=== PATIENT | female | born 1985 | race Caucasian/White ===

== ENCOUNTER 2017-01-31 18:25 | Emergency (ER) | payer OTHER ==
--- NOTE | 2017-01-31 20:42 | ED CLINICAL REPORT ---
Clinical Report - Physicians/Mid Levels [facility] [address] [place] [address] 01/31/2017 18:24 Patient: KATY SNOW Time Seen: 19:03; initial patient contact, initial documentation, patient care assumed. Arrived- By private vehicle. Historian- patient. HISTORY OF PRESENT ILLNESS Chief Complaint: SKIN RASH. This started about 5 days ago and is still present and worsening. It is described as itchy and painful. Not burning. It has been located on the face, trunk, right upper extremity, left upper extremity and neck. No cause has been identified. (pt admitted to picking at spots, just got out of [facility] and spots popped up after that, she thinks the rash is now in her blood and infecting her heart). Similar symptoms previously: None. Recent medical care: Not recently seen/assessed. REVIEW OF SYSTEMS The patient has had a subjective fever. All systems otherwise negative, except as recorded above. PAST HISTORY See nurses notes. PROBLEMS: Hives. Endocarditis. Pyelonephritis. Immunizations. LNMP - Last Normal Menstrual Period. Hypothyroidism. Chronic pain. --18:57 Socorro Brooks R.N. ADDITIONAL SURGERIES: Tonsillectomy. --18:57 Socorro Brooks R.N. Dental Surgery. --18:57 Socorro Brooks R.N. SOCIAL HISTORY Heavy tobacco smoker. Occasional alcohol use. History of heavy IV drug use: heroin, methamphetamines, marijuana. Recently used drugs days ago. No recent travel. Is a local resident. FAMILY HISTORY Negative. ADDITIONAL NOTES The nursing notes have been reviewed with agreement regarding the chief complaint, HPI, ROS, PMH and patient medications and allergies. PHYSICAL EXAM Vital Signs: 01/31/2017 18:53 BP: 122/79. HR: 115. RR: 20. O2 saturation: 97%. Temp: 98.4 F. Pain level now: 8/10. Have been reviewed as abnormal and appear to be correct. Blood pressure normal. Tachycardic. Respiratory rate normal. Temperature normal. Oxygen saturation normal. Appearance: Alert. Oriented X3. No acute distress. Anxious. (pt appears under the influence). Eyes: Pupils equal, round and reactive to light. Conjunctivae and eyelids normal. ENT: Ears normal. Nose abnormal. Pharynx normal. ( yellow crusty scab wound noted to inside L nare and outside of nose). Neck: Neck supple. Respiratory: No respiratory distress. Skin: Skin warm and dry. Normal skin color. No rash. Normal skin turgor. (numerous scabs and yellow crusts, on face, inside L nare, neck, upper back, arms, and pt picking at ones on face and in nose during exam). Extremities: Normal external inspection. Extremities nontender. Neuro: Oriented X 3. No motor deficit. No sensory deficit. LABS, X-RAYS, AND EKG Laboratory Tests: UA-Culture if indicated: (FAYE: 01/31/2017 19:00) ( [facility] [place] 01/31/2017 19:51) Final results Test Result Flag Units (Reference) URINE COLOR DARK YELLOW URINE APPEARANCE SL CLOUDY URINE GLUCOSE NEGATIVE (NEGATIVE) URINE BILIRUBIN ICTOTEST NEGATIVE (NEGATIVE) URINE KETONE NEGATIVE (NEGATIVE) URINE SPECIFIC GRAVITY 1.025 (1.010-1.030) URINE PH 6.5 (5.0-8.0) URINE PROTEIN TRACE (NEGATIVE) URINE UROBILINOGEN 1.0 EU/dL (0.2-1.0) URINE NITRITE NEGATIVE (NEGATIVE) URINE BLOOD 2+ (NEGATIVE) URINE LEUK ESTERASE NEGATIVE (NEGATIVE) URINE RBC 5-10 rbc/hpf (0-1) URINE WBC 1-3 wbc/hpf (0-1) URINE EPITHELIAL CELLS 5-10 EPI/hpf (0-5) URINE BACTERIA FEW (1+) (NONE SEEN) URINE COMMENT CULT NOT INDICATED 1+ MUCUS1+ CALCIUM OXALATE CRYSTALSURINE CULTURES ARE SET-UP BASED ON THE FOLLOWING CRITERIA:POSITIVE NITRITEPOSITIVE LEUKOCYTE ESTERASEGREATER THAN 10 WHITE BLOOD CELLSMODERATE (2+) OR GREATER BACTERIA Urine: (FAYE: 01/31/2017 19:00) ( [facility] [place] 01/31/2017 19:47) Final results Test Result Flag Units (Reference) URINE NEGATIVE CBC w Diff: (FAYE: 01/31/2017 19:30) ( MsgRcvd 01/31/2017 20:23) Final results Test Result Flag Units (Reference) WHITE BLOOD COUNT 8.4 K/uL (4.5-11.5) RED BLOOD COUNT 3.76 L M/uL (4.00-5.20) HEMOGLOBIN 12.2 gm/dL (12.0-16.0) HEMATOCRIT 34.6 L % (36.0-46.0) MEAN CELL VOLUME 92 fL (80-100) MEAN CORPUSCULAR HGB 33 pg (26-34) MEAN CORPUSCULAR HGB CONC 35 g/dL (31-37) RED CELL DISTRIBUTION WIDTH 12.7 % (11.6-14.8) PLATELET COUNT Test not performed K/uL (150-400) PLATELET CLUMPS. APPEAR TO BE ADEQUATE IN NUMBER PER SMEARREVIEW. NEUTROPHIL % 62.7 % (50-75) LYMPH % 22.3 L % (25-40) MONO % 11.9 % (3-14) EOSINOPHIL % 2.8 % (0-4) BASOPHIL % 0.3 % (0-2) Urine Drug Screen: (FAYE: 01/31/2017 19:00) ( MsgRcvd 01/31/2017 20:11) Final results Test Result Flag Units (Reference) AMPHETAMINE/METHAMPHETAMINE POSITIVE H (NEGATIVE) BARBITURATE NEGATIVE (NEGATIVE) BENZODIAZEPINE NEGATIVE (NEGATIVE) CANNABINOID NEGATIVE (NEGATIVE) COCAINE NEGATIVE (NEGATIVE) ECSTASY NEGATIVE (NEGATIVE) METHADONE NEGATIVE (NEGATIVE) OPIATE POSITIVE H (NEGATIVE) The urine drug screen is a qualitative screening test fordrug overdose and abuse. All screen results should beconsidered as presumptive.Drugs screened for are as follows:BenzodiazepinesCocaineAmphetamines/MetamphetaminesTHC (Tetrahydrocannabinol)OpiatesBarbituratesEcstasyMethadonePositive results are unconfirmed. For confirmation, notifythe lab for the specimen to be sent to the reference lab.All confirmations must be performed by a differentmethodology.The ingestion of natural herbal and plant productscontaining Ephedra/Ephedra metabolites can produce in urineone or more substances capable of cross reacting withamphetamine/methamphetamine immunoassays. These testsprovide a preliminary result only. A more specificalternative chemical method must be used to obtain aconfirmed analytical result. CMP: (FAYE: 01/31/2017 19:30) ( MsgRcvd 01/31/2017 20:01) Final results Test Result Flag Units (Reference) GLUCOSE 103 mg/dL (70-110) BUN 14 mg/dL (7-18) CREATININE 0.8 mg/dL (0.6-1.3) Estimated GFR >60 mL/min Estimated GFR- >60 mL/min Note: Persistent reduction over 3 months in eGFR<60 mL/min/1.73 m2 defines CKD. Patients with eGFR values>=60 mL/min/1.73 m2 may also have CKD if evidence ofpersistent proteinuria. Additional information may be foundat www.kidney.org. SODIUM 142 mmol/L (136-145) POTASSIUM 3.5 mmol/L (3.5-5.1) CHLORIDE 107 mmol/L (98-107) CARBON DIOXIDE 25 mmol/L (21-32) CALCIUM 9.6 mg/dL (8.5-10.1) TOTAL PROTEIN 6.9 g/dL (6.4-8.2) ALBUMIN 3.5 g/dL (3.3-5.0) BILIRUBIN, TOTAL 1.0 mg/dL (0.0-1.0) ALKALINE PHOSPHATASE 78 U/L (46-116) AST (SGOT) 41 H U/L (15-37) ALT (SGPT) 62 U/L (12-78) . PROGRESS AND PROCEDURES Patient counseled in person regarding the patient's stable condition, test results and diagnosis. 20:23. Differential Diagnosis: Other possible considerations: substance abuse, impetigo, mrsa, cellulitis, abscess, fungus. Above considerations are based on history, physical exam, reassessment and laboratory data. Differential diagnosis was discussed with patient. Disposition: Discharged home in good and unchanged condition (20:28). Condition: good and stable. CLINICAL IMPRESSION Bullous impetigo Chronic substance abuse- heroin, amphetamines with intoxication and anxiety. INSTRUCTIONS Warnings: GENERAL WARNINGS: Return or contact your physician immediately if your condition worsens or changes unexpectedly, if not improving as expected, or if other problems arise. Specifically return if problem worsens. Prescription Medications: Bactrim DS 800 mg / 160 mg: take 1 tablet orally every day for 10 days. No refill. Bactroban 2% ointment: apply small amount to affected area three times daily for 5 days. Dispense twenty-two (22) grams. No refills. Substitution is permissible. Follow-up: Follow up with your doctor in about three days as needed. Call for an appointment. Summary of care provided to patient. Understanding of the discharge instructions verbalized by patient. (Electronically signed by Rola Melvin A.R.N.P. 01/31/2017 21:15)
--- NOTE | 2017-01-31 20:42 | ED NURSING NOTES ---
Clinical Report - Nurses [facility] [address] [place] [address] 01/31/2017 18:24 Patient: KATY SNOW TRIAGE Triage time 18:54 Jan 31 2017. Acuity: LEVEL 3. Chief Complaint: SKIN RASH. Alert. No acute distress. SEPSIS SCREEN: Sepsis Screen. Negative (no infection suspected/documented). --19:02 Socorro Brooks R.N. 18:53 01/31/17. BP: 122/79. HR: 115. RR: 20. O2 saturation: 97%. Temp: 98.4 F. Pain level now: 05/01. --19:02 Socorro Brooks R.N. Weight: 74.8 kg stated. Height/Length: 69 inches Per Patient. BMI: 24.4. --18:58 Socorro Brooks R.N. Medications None. --18:57 Socorro Brooks R.N. Allergies None. --18:57 Socorro Brooks R.N. History Arrived by private vehicle. Historian: patient. Accompanied by family. Reported as generalized in location. Onset. (about 5 days). It is described as itchy and painful. ( [facility]. Pt states that all the sores have happened since then.). She has had fever and muscle aches. 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 PAST MEDICAL HX: Immunizations: status is unknown. Uses an intrauterine device. Denies current . SOCIAL HX: Current every day heavy tobacco smoker (cigarette)- less than 1 pack per day. Occasional alcohol use. History of drug use: heroin, methamphetamines, marijuana. Under influence in ED. (about 2 days ago). No infectious disease exposure. SELF HARM ASSESSMENT: A self harm assessment was performed. The patient answered "no" to the question "Do you have thoughts of harming or killing yourself?". FALL RISK ASSESSMENT: Fall risk assessment completed. No fall risk identified. NUTRITIONAL RISK ASSESSMENT: The nutritional risk assessment revealed no deficiencies. FUNCTIONAL ASSESSMENT: Functional assessment: no impairments noted. LEARNING NEEDS ASSESSMENT: The learning needs assessment revealed no barriers. ABUSE ASSESSMENT: Abuse assessment: The patient was asked "Do you feel safe in your home?". SKIN INTEGRITY ASSESSMENT: Skin integrity risk assessment completed. No skin integrity risk identified. --19:02 Socorro Brooks R.N. SOCIAL HX: ( clarification to earlier note - pt appears to be under the influence of a substance in ED but pt states she last used 2 days ago.). --19:38 Socorro Brooks R.N. PROBLEMS: Hives. Endocarditis. Pyelonephritis. Immunizations. LNMP - Last Normal Menstrual Period. Hypothyroidism. Chronic pain. --18:57 Socorro Brooks R.N. ADDITIONAL SURGERIES: Tonsillectomy. --18:57 Socorro Brooks R.N. Dental Surgery. --18:57 Socorro Brooks R.N. Interventions ID band on patient. To room. --19:02 Socorro Brooks R.N. PHYSICAL ASSESSMENT GENERAL / NEURO / PSYCH: Alert. Appears anxious. Oriented X 4. HEENT: Mucous membranes are pink. RESPIRATORY: Respirations not labored. CVS: Cardiac rhythm: (tachy). Capillary refill less than 2 seconds. GI / : ( c/o diarrhea (15x per day) and gas). Pain with urination. She has had frequency of urination. Urgency of urination. SKIN: Multiple skin lesions present- skin lesions all over body. Drainage. Increased warmth present. Erythema present. --19:05 Socorro Brooks R.N. NURSING PROGRESS NOTES Patient gowned. Head of bed elevated. Call light placed in reach. Side rails up x 1. Bed placed in lowest position. Brakes of bed on. --19:06 Socorro Brooks R.N. ( called lab to come and draw patient). --19:12 Socorro Brooks R.N. <<STRICKEN ENTRY-- The patient is calm and resting quietly. --19:22 Socorro Brooks R.N. --END STRIKE>> Charted On Wrong Patient --19:25 Socorro Brooks R.N. <<STRICKEN ENTRY-- 19:19 01/31/17. BP: 124/59. HR: 67. RR: 16. O2 saturation: 100%. --19:22 Socorro Brooks R.N. --END STRIKE>> Charted on wrong patient. --19:25 Socorro Brooks R.N. DISPOSITION / DISCHARGE Departure time: 20:51 Jan 31 2017. Condition at departure: unchanged. No learning barriers present. Discharge instructions provided and reviewed with the patient. Reviewed medication(s) side effects, precautions, dosing and course information. Prescription(s) given to the patient. Reviewed referral to a primary care physician for followup. Patient verbalized understanding. Written instructions provided in Thai. The patient was discharged home and accompanied by parent. She left the Emergency Department ambulatory and via private vehicle. Parent driving. FALL RISK ASSESSMENT: Fall risk assessment completed. No fall risk identified. --20:51 Socorro Brooks R.N. 20:50 01/31/17. BP: 121/77. HR: 113. RR: 20. O2 saturation: 98%. Pain level now: 03/31. --20:51 Socorro Brooks R.N. Locked/Released at 01/31/2017 22:44 by Socorro Brooks R.N.
--- NOTE | 2017-01-31 20:42 | ED ORDER SUMMARY ---
..... Patient: KATY SNOW OrderSheet [facility] VisitID: [id number] [address] [place] [address] 32y, F Registration Date/Time: 01/31/2017 ORDER SHEET Weight: 74.8 kg (stated) Allergies: None GENERAL ORDERS: CBC w Diff Urgent (19:01/31/2017 HBivens A.R.N.P.) (Ack 19:16 [facility] [place]) (19:32 KKnebel R.N.) CMP Urgent (19:01/31/2017 HBivens A.R.N.P.) (Ack 19:16 [facility] [place]) (19:32 KKnebel R.N.) Urine Urgent (19:01/31/2017 HBivens A.R.N.P.) (Ack 19:16 [facility] [place]) (19:32 KKnebel R.N.) Urine Drug Screen Urgent (19:01/31/2017 HBivens A.R.N.P.) (Ack 19:16 [facility] [place]) (19:32 KKnebel R.N.) UA-Culture if indicated Urgent (19:01/31/2017 HBivens A.R.N.P.) (Ack 19:16 [facility] [place]) (19:32 KKnebel R.N.) MEDICATION ORDERS: IV FLUIDS: ORDER SHEET NOTES: [Electronically signed by Rola Melvin A.R.N.P. (21:15 01/31/2017)] [Electronically signed by Socorro Brooks R.N. (22:44 01/31/2017)] [Electronically locked/signed by Socorro Brooks R.N. (22:44 01/31/2017)]
--- NOTE | 2017-01-31 20:42 | ED ORDER SUMMARY ---
..... Patient: KATY SNOW OrderSheet [facility] VisitID: [id number] [address] [place] [address] 32y, F Registration Date/Time: 01/31/2017 ORDER SHEET Weight: 74.8 kg (stated) Allergies: None GENERAL ORDERS: CBC w Diff Urgent (19:01/31/2017 HBivens A.R.N.P.) (Ack 19:16 [facility] [place]) (19:32 KKnebel R.N.) CMP Urgent (19:01/31/2017 HBivens A.R.N.P.) (Ack 19:16 [facility] [place]) (19:32 KKnebel R.N.) Urine Urgent (19:01/31/2017 HBivens A.R.N.P.) (Ack 19:16 [facility] [place]) (19:32 KKnebel R.N.) Urine Drug Screen Urgent (19:01/31/2017 HBivens A.R.N.P.) (Ack 19:16 [facility] [place]) (19:32 KKnebel R.N.) UA-Culture if indicated Urgent (19:01/31/2017 HBivens A.R.N.P.) (Ack 19:16 [facility] [place]) (19:32 KKnebel R.N.) MEDICATION ORDERS: IV FLUIDS: ORDER SHEET NOTES: [Electronically signed by Rola Melvin A.R.N.P. (21:15 01/31/2017)] [Electronically signed by Socorro Brooks R.N. (22:44 01/31/2017)] [Electronically locked/signed by Socorro Brooks R.N. (22:44 01/31/2017)]
--- NOTE | 2017-01-31 20:42 | ED NURSING NOTES ---
Clinical Report - Nurses [facility] [address] [place] [address] 01/31/2017 18:24 Patient: KATY SNOW TRIAGE Triage time 18:54 Jan 31 2017. Acuity: LEVEL 3. Chief Complaint: SKIN RASH. Alert. No acute distress. SEPSIS SCREEN: Sepsis Screen. Negative (no infection suspected/documented). --19:02 Socorro Brooks R.N. 18:53 01/31/17. BP: 122/79. HR: 115. RR: 20. O2 saturation: 97%. Temp: 98.4 F. Pain level now: 05/01. --19:02 Socorro Brooks R.N. Weight: 74.8 kg stated. Height/Length: 69 inches Per Patient. BMI: 24.4. --18:58 Socorro Brooks R.N. Medications None. --18:57 Socorro Brooks R.N. Allergies None. --18:57 Socorro Brooks R.N. History Arrived by private vehicle. Historian: patient. Accompanied by family. Reported as generalized in location. Onset. (about 5 days). It is described as itchy and painful. ( [facility]. Pt states that all the sores have happened since then.). She has had fever and muscle aches. 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 PAST MEDICAL HX: Immunizations: status is unknown. Uses an intrauterine device. Denies current . SOCIAL HX: Current every day heavy tobacco smoker (cigarette)- less than 1 pack per day. Occasional alcohol use. History of drug use: heroin, methamphetamines, marijuana. Under influence in ED. (about 2 days ago). No infectious disease exposure. SELF HARM ASSESSMENT: A self harm assessment was performed. The patient answered "no" to the question "Do you have thoughts of harming or killing yourself?". FALL RISK ASSESSMENT: Fall risk assessment completed. No fall risk identified. NUTRITIONAL RISK ASSESSMENT: The nutritional risk assessment revealed no deficiencies. FUNCTIONAL ASSESSMENT: Functional assessment: no impairments noted. LEARNING NEEDS ASSESSMENT: The learning needs assessment revealed no barriers. ABUSE ASSESSMENT: Abuse assessment: The patient was asked "Do you feel safe in your home?". SKIN INTEGRITY ASSESSMENT: Skin integrity risk assessment completed. No skin integrity risk identified. --19:02 Socorro Brooks R.N. SOCIAL HX: ( clarification to earlier note - pt appears to be under the influence of a substance in ED but pt states she last used 2 days ago.). --19:38 Socorro Brooks R.N. PROBLEMS: Hives. Endocarditis. Pyelonephritis. Immunizations. LNMP - Last Normal Menstrual Period. Hypothyroidism. Chronic pain. --18:57 Socorro Brooks R.N. ADDITIONAL SURGERIES: Tonsillectomy. --18:57 Socorro Brooks R.N. Dental Surgery. --18:57 Socorro Brooks R.N. Interventions ID band on patient. To room. --19:02 Socorro Brooks R.N. PHYSICAL ASSESSMENT GENERAL / NEURO / PSYCH: Alert. Appears anxious. Oriented X 4. HEENT: Mucous membranes are pink. RESPIRATORY: Respirations not labored. CVS: Cardiac rhythm: (tachy). Capillary refill less than 2 seconds. GI / : ( c/o diarrhea (15x per day) and gas). Pain with urination. She has had frequency of urination. Urgency of urination. SKIN: Multiple skin lesions present- skin lesions all over body. Drainage. Increased warmth present. Erythema present. --19:05 Socorro Brooks R.N. NURSING PROGRESS NOTES Patient gowned. Head of bed elevated. Call light placed in reach. Side rails up x 1. Bed placed in lowest position. Brakes of bed on. --19:06 Socorro Brooks R.N. ( called lab to come and draw patient). --19:12 Socorro Brooks R.N. <<STRICKEN ENTRY-- The patient is calm and resting quietly. --19:22 Socorro Brooks R.N. --END STRIKE>> Charted On Wrong Patient --19:25 Socorro Brooks R.N. <<STRICKEN ENTRY-- 19:19 01/31/17. BP: 124/59. HR: 67. RR: 16. O2 saturation: 100%. --19:22 Socorro Brooks R.N. --END STRIKE>> Charted on wrong patient. --19:25 Socorro Brooks R.N. DISPOSITION / DISCHARGE Departure time: 20:51 Jan 31 2017. Condition at departure: unchanged. No learning barriers present. Discharge instructions provided and reviewed with the patient. Reviewed medication(s) side effects, precautions, dosing and course information. Prescription(s) given to the patient. Reviewed referral to a primary care physician for followup. Patient verbalized understanding. Written instructions provided in Greek. The patient was discharged home and accompanied by parent. She left the Emergency Department ambulatory and via private vehicle. Parent driving. FALL RISK ASSESSMENT: Fall risk assessment completed. No fall risk identified. --20:51 Socorro Brooks R.N. 20:50 01/31/17. BP: 121/77. HR: 113. RR: 20. O2 saturation: 98%. Pain level now: 03/31. --20:51 Socorro Brooks R.N. Locked/Released at 01/31/2017 22:44 by Socorro Brooks R.N.
--- NOTE | 2017-01-31 22:44 | ED DISCHARGE INSTRUCTIONS ---
Patient: KATY SNOW General Instructions [facility] VisitID: [id number] [place] [address] 32y, F Registration Date/Time: 01/31/2017 Bullous impetigo Chronic substance abuse- heroin, amphetamines with intoxication and anxiety. INSTRUCTIONS Warnings: GENERAL WARNINGS: Return or contact your physician immediately if your condition worsens or changes unexpectedly, if not improving as expected, or if other problems arise. Specifically return if problem worsens. Prescription Medications: Bactrim DS 800 mg / 160 mg: take 1 tablet orally every day for 10 days. No refill. Bactroban 2% ointment: apply small amount to affected area three times daily for 5 days. Dispense twenty-two (22) grams. No refills. Substitution is permissible. Follow-up: Follow up with your doctor in about three days as needed. Call for an appointment. Summary of care provided to patient. Understanding of the discharge instructions verbalized by patient. ADDITIONAL INFORMATION Impetigo Impetigo is the name for a bacterial infection of the skin. It is common in children. It may start as an infected insect bite or scratch and spread rapidly to other areas of the body. It is contagious and can be given to other children by touching. The sores usually have a malhotra brown crust and grow gradually larger as they spread. Impetigo requires treatment with an antibiotic. Home care The following guidelines will help you care for your infection at home: Trim fingernails and cover sores with an adhesive bandage if necessary to prevent scratching. Picking at the sores may leave a scar. Wash hands (yours and your child's) often. This will avoid spreading the infection to other parts of the body and to other children. Do not let your child share washcloths, towels, pillows, sheets, or clothes with others. Wash these items in hot water before using again. The sores should be washed three times a day with soap and water. Use a washcloth to scrub the sores and remove the crust. Then apply an antibacterial cream as directed. If antibiotic pills or liquid was prescribed, be sure your child takes all the medicine until it is gone. Your child should stay out of school until completing two full days of antibiotic treatment. Use acetaminophen for fever, fussiness or discomfort, unless another medicine was prescribed. In infants over six months of age, you may use ibuprofen instead of acetaminophen. If your child has chronic liver or kidney disease or has ever had a stomach ulcer or GI bleeding, talk with your doctor before using these medicines. (Aspirin should never be used in anyone under 18 years of age who is ill with a fever. It may cause severe liver damage. Follow-up care Follow up with your doctor or this facility if the sores continue to spread after three days of treatment. It will take about 710 days to heal completely. When to seek medical care Get prompt medical attention if any of the following occur: Increasing number of sores or spreading areas of redness after two days of treatment with antibiotics Increasing swelling, or pain Fever of 100.4F (38C) oral or 101.4F (38.5C) rectal or higher, not better with fever medication Increased amounts of fluid or pus coming from the sores Unusual drowsiness, weakness, or change in behavior Loss of appetite or vomiting Cellulitis You have an infection of the skin known as cellulitis. This usually starts with a scrape, cut, insect bite, blister or other opening in the skin which becomes infected. This is a serious condition. It must be watched closely to be sure the infection is not spreading. With antibiotic treatment, the size of the red area will gradually shrink in size until the skin returns to normal. This will take 7-10 days. The red area should never increase in size once the antibiotic medicine has been started. Occasionally, an infection will be resistant to one antibiotic and another one will have to be used. Home Care: 1) Limit the use of the affected part, since excess movement can cause the infection to spread. 2) If the infection is on your leg, walk as little as possible during the first few days of the treatment. Keep your leg elevated while sitting. This will reduce swelling. 3) Take all of the antibiotic medicine exactly as directed until it is gone. Be careful not to miss any doses, especially during the first seven days. Follow Up with your doctor or this facility as directed. Check the infected area daily for the warning signs listed below. Get Prompt Medical Attention if any of the following occur: -- Spreading area of redness -- Increasing swelling or pain -- Appearance of pus or drainage -- Fever over 100.4 F (38.0 C) oral, or over 101.4 F (38.6 C) rectal, after two days on antibiotics Drug Abuse Use and abuse of such drugs as marijuana, amphetamines (speed, crank), cocaine, heroin or prescription pain medicines (Vicodin, codeine), sedatives and sleeping pills (Valium, Klonopin), PCP, mescaline and LSD may lead to addiction or dependence. Once this occurs, you are at greater risk for any of the following: Craving for the drug and unable to stop using the drug even though you think you want to stop (psychological dependence) Drug withdrawal symptoms if you stop taking the drug (physical dependence) Loss of your job or your family Arrest, conviction and halfway sentence for possession of an illegal substance or for driving under the influence of such a substance Accidental injuries to yourself or others while you are under the influence of the drug (in a car or at home). HIV infection (much greater risk if you use IV drugs) Other sexually transmitted diseases (herpes, chlamydia, gonorrhea and others) Severe and fatal infection of the heart valves (if you use IV drugs) Stroke, heart attack, hepatitis B or C, kidney failure from overdose Home Care: Admit you have a drug problem. Ask for help from your family and close friends. Seek professional help. This could be in the form of individual psychotherapy or counseling or an outpatient, inpatient, or residential drug treatment program. Join a self-help group for drug abuse. Avoid friends who abuse drugs themselves or tempt you to continue abusing drugs. Eat a balanced diet and begin a regular exercise program. Follow Up with your doctor or as advised by our staff. Contact one of the resources below for help. National [place] on Alcoholism and Drug Dependence www.ncadd.org 104-558-NOOO Narcotics Anonymous www.na.org 526-831-0403 National Alcohol and Substance Abuse Information Center (for referral to treatment programs) www.addictioncare[employer] 947-050-8299 Get Prompt Medical Attention if any of the following occur: Agitation, anxiety, unable to sleep Unintended weight loss (more than 10 to 15 pounds over 3 months) Seizure Chest pain Fever of 100.4F (38C) or higher, or as directed by your healthcare provider Excess drowsiness or inability to be awakened Shortness of breath Slow breathing under 8 breaths per minute Cough with colored sputum Redness, swelling or tenderness at an injection site Sulfamethoxazole, Trimethoprim Oral tablet What is this medicine? SULFAMETHOXAZOLE; TRIMETHOPRIM or SMX-TMP (suhl fuh meth OK kaykay zohl; trye METH oh prim) is a combination of a sulfonamide antibiotic and a second antibiotic, trimethoprim. It is used to treat or prevent certain kinds of bacterial infections. It will not work for colds, flu, or other viral infections. How should I use this medicine? Take this medicine by mouth with a full glass of water. Follow the directions on the prescription label. Take your medicine at regular intervals. Do not take it more often than directed. Do not skip doses or stop your medicine early. Talk to your sleeve tailor regarding the use of this medicine in children. Special care may be needed. This medicine has been used in children as young as 2 months of age. What side effects may I notice from receiving this medicine? Side effects that you should report to your doctor or health home care attendant as soon as possible: allergic reactions like skin rash or hives, swelling of the face, lips, or tongue breathing problems fever or chills, sore throat irregular heartbeat, chest pain joint or muscle pain pain or difficulty passing urine red pinpoint spots on skin redness, blistering, peeling or loosening of the skin, including inside the mouth unusual bleeding or bruising unusually weak or tired yellowing of the eyes or skin Side effects that usually do not require medical attention (report to your doctor or health home care attendant if they continue or are bothersome): diarrhea dizziness headache loss of appetite nausea, vomiting nervousness What may interact with this medicine? Do not take this medicine with any of the following medications: aminobenzoate potassium dofetilide metronidazole This medicine may also interact with the following medications: ARIANNA inhibitors like benazepril, enalapril, lisinopril, and ramipril cyclosporine digoxin diuretics indomethacin medicines for diabetes methenamine methotrexate phenytoin potassium supplements pyrimethamine sulfinpyrazone tricyclic antidepressants warfarin What if I miss a dose? If you miss a dose, take it as soon as you can. If it is almost time for your next dose, take only that dose. Do not take double or extra doses. Where should I keep my medicine? Keep out of the reach of children. Store at room temperature between 20 to 25 degrees C (68 to 77 degrees F). Protect from light. Throw away any unused medicine after the expiration date. What should I tell my health care provider before I take this medicine? They need to know if you have any of these conditions: anemia asthma being treated with anticonvulsants if you frequently drink alcohol containing drinks kidney disease liver disease low level of folic acid or [id number] dehydrogenase poor nutrition or malabsorption porphyria severe allergies thyroid disorder an unusual or allergic reaction to sulfamethoxazole, trimethoprim, sulfa drugs, other medicines, foods, dyes, or preservatives or trying to get breast-feeding What should I watch for while using this medicine? Tell your doctor or health home care attendant if your symptoms do not improve. Drink several glasses of water a day to reduce the risk of kidney problems. Do not treat diarrhea with over the counter products. Contact your doctor if you have diarrhea that lasts more than 2 days or if it is severe and watery. This medicine can make you more sensitive to the sun. Keep out of the sun. If you cannot avoid being in the sun, wear protective clothing and use a sunscreen. Do not use sun lamps or tanning beds/booths. Mupirocin Topical ointment What is this medicine? MUPIROCIN (myoo PEER oh sin) is an antibiotic. It is used on the skin to treat skin infections. How should I use this medicine? This medicine is for external use only. Follow the directions on the prescription label. Wash your hands before and after use. Before applying, wash the affected area with mild soap and water and pat dry. Apply a small amount to the affected area and rub gently. You can cover the area with a gauze dressing. Do not get this medicine in your eyes. If you do, rinse out with plenty of cool tap water. Do not use your medicine more often than directed. Finish the full course of medicine prescribed by your doctor or health home care attendant even if you think your condition is better. Do not use over large areas of burnt skin. Talk to your sleeve tailor regarding the use of this medicine in children. Special care may be needed. What side effects may I notice from receiving this medicine? Side effects that you should report to your doctor or health home care attendant as soon as possible: skin rash, redness, continued swelling, burning, itching, stinging, or pain Side effects that usually do not require medical attention (report to your doctor or health home care attendant if they continue or are bothersome): dry skin, itching What may interact with this medicine? Interactions are not expected. Do not use any other skin products on the affected area without telling your doctor or health home care attendant. What if I miss a dose? If you miss a dose, take it as soon as you can. If it is almost time for your next dose, take only that dose. Do not take double or extra doses. Where should I keep my medicine? Keep out of the reach of children. Store at room temperature between 20 and 25 degrees C (68 and 77 degrees F). Throw away any unused medicine after the expiration date. What should I tell my health care provider before I take this medicine? They need to know if you have any of these conditions: an unusual or allergic reaction to mupirocin, polyethylene glycol (PEG), or other topical antibiotic medicine or trying to get breast-feeding What should I watch for while using this medicine? Tell your doctor or health home care attendant if your skin condition does not begin to improve within 3 to 5 days. You have been given the following additional information: Impetigo (Child) Cellulitis Drug Abuse Sulfamethoxazole, Trimethoprim Oral tablet Mupirocin Topical ointment (Electronically signed by Rola Melvin A.R.N.P. 01/31/2017 21:15)
--- NOTE | 2017-01-31 22:44 | ED DISCHARGE INSTRUCTIONS ---
Patient: KATY SNOW General Instructions [facility] VisitID: [id number] [place] [address] 32y, F Registration Date/Time: 01/31/2017 Bullous impetigo Chronic substance abuse- heroin, amphetamines with intoxication and anxiety. INSTRUCTIONS Warnings: GENERAL WARNINGS: Return or contact your physician immediately if your condition worsens or changes unexpectedly, if not improving as expected, or if other problems arise. Specifically return if problem worsens. Prescription Medications: Bactrim DS 800 mg / 160 mg: take 1 tablet orally every day for 10 days. No refill. Bactroban 2% ointment: apply small amount to affected area three times daily for 5 days. Dispense twenty-two (22) grams. No refills. Substitution is permissible. Follow-up: Follow up with your doctor in about three days as needed. Call for an appointment. Summary of care provided to patient. Understanding of the discharge instructions verbalized by patient. ADDITIONAL INFORMATION Impetigo Impetigo is the name for a bacterial infection of the skin. It is common in children. It may start as an infected insect bite or scratch and spread rapidly to other areas of the body. It is contagious and can be given to other children by touching. The sores usually have a malhotra brown crust and grow gradually larger as they spread. Impetigo requires treatment with an antibiotic. Home care The following guidelines will help you care for your infection at home: Trim fingernails and cover sores with an adhesive bandage if necessary to prevent scratching. Picking at the sores may leave a scar. Wash hands (yours and your child's) often. This will avoid spreading the infection to other parts of the body and to other children. Do not let your child share washcloths, towels, pillows, sheets, or clothes with others. Wash these items in hot water before using again. The sores should be washed three times a day with soap and water. Use a washcloth to scrub the sores and remove the crust. Then apply an antibacterial cream as directed. If antibiotic pills or liquid was prescribed, be sure your child takes all the medicine until it is gone. Your child should stay out of school until completing two full days of antibiotic treatment. Use acetaminophen for fever, fussiness or discomfort, unless another medicine was prescribed. In infants over six months of age, you may use ibuprofen instead of acetaminophen. If your child has chronic liver or kidney disease or has ever had a stomach ulcer or GI bleeding, talk with your doctor before using these medicines. (Aspirin should never be used in anyone under 18 years of age who is ill with a fever. It may cause severe liver damage. Follow-up care Follow up with your doctor or this facility if the sores continue to spread after three days of treatment. It will take about 710 days to heal completely. When to seek medical care Get prompt medical attention if any of the following occur: Increasing number of sores or spreading areas of redness after two days of treatment with antibiotics Increasing swelling, or pain Fever of 100.4F (38C) oral or 101.4F (38.5C) rectal or higher, not better with fever medication Increased amounts of fluid or pus coming from the sores Unusual drowsiness, weakness, or change in behavior Loss of appetite or vomiting Cellulitis You have an infection of the skin known as cellulitis. This usually starts with a scrape, cut, insect bite, blister or other opening in the skin which becomes infected. This is a serious condition. It must be watched closely to be sure the infection is not spreading. With antibiotic treatment, the size of the red area will gradually shrink in size until the skin returns to normal. This will take 7-10 days. The red area should never increase in size once the antibiotic medicine has been started. Occasionally, an infection will be resistant to one antibiotic and another one will have to be used. Home Care: 1) Limit the use of the affected part, since excess movement can cause the infection to spread. 2) If the infection is on your leg, walk as little as possible during the first few days of the treatment. Keep your leg elevated while sitting. This will reduce swelling. 3) Take all of the antibiotic medicine exactly as directed until it is gone. Be careful not to miss any doses, especially during the first seven days. Follow Up with your doctor or this facility as directed. Check the infected area daily for the warning signs listed below. Get Prompt Medical Attention if any of the following occur: -- Spreading area of redness -- Increasing swelling or pain -- Appearance of pus or drainage -- Fever over 100.4 F (38.0 C) oral, or over 101.4 F (38.6 C) rectal, after two days on antibiotics Drug Abuse Use and abuse of such drugs as marijuana, amphetamines (speed, crank), cocaine, heroin or prescription pain medicines (Vicodin, codeine), sedatives and sleeping pills (Valium, Klonopin), PCP, mescaline and LSD may lead to addiction or dependence. Once this occurs, you are at greater risk for any of the following: Craving for the drug and unable to stop using the drug even though you think you want to stop (psychological dependence) Drug withdrawal symptoms if you stop taking the drug (physical dependence) Loss of your job or your family Arrest, conviction and penitentiary sentence for possession of an illegal substance or for driving under the influence of such a substance Accidental injuries to yourself or others while you are under the influence of the drug (in a car or at home). HIV infection (much greater risk if you use IV drugs) Other sexually transmitted diseases (herpes, chlamydia, gonorrhea and others) Severe and fatal infection of the heart valves (if you use IV drugs) Stroke, heart attack, hepatitis B or C, kidney failure from overdose Home Care: Admit you have a drug problem. Ask for help from your family and close friends. Seek professional help. This could be in the form of individual psychotherapy or counseling or an outpatient, inpatient, or residential drug treatment program. Join a self-help group for drug abuse. Avoid friends who abuse drugs themselves or tempt you to continue abusing drugs. Eat a balanced diet and begin a regular exercise program. Follow Up with your doctor or as advised by our staff. Contact one of the resources below for help. National [employer] on Alcoholism and Drug Dependence www.ncadd.org 020-554-LKVZ Narcotics Anonymous www.na.org 378-849-0695 National Alcohol and Substance Abuse Information Center (for referral to treatment programs) www.addictioncareBrainpark.[employer] 567-083-9701 Get Prompt Medical Attention if any of the following occur: Agitation, anxiety, unable to sleep Unintended weight loss (more than 10 to 15 pounds over 3 months) Seizure Chest pain Fever of 100.4F (38C) or higher, or as directed by your healthcare provider Excess drowsiness or inability to be awakened Shortness of breath Slow breathing under 8 breaths per minute Cough with colored sputum Redness, swelling or tenderness at an injection site Sulfamethoxazole, Trimethoprim Oral tablet What is this medicine? SULFAMETHOXAZOLE; TRIMETHOPRIM or SMX-TMP (suhl fuh meth OK kaykay zohl; trye METH oh prim) is a combination of a sulfonamide antibiotic and a second antibiotic, trimethoprim. It is used to treat or prevent certain kinds of bacterial infections. It will not work for colds, flu, or other viral infections. How should I use this medicine? Take this medicine by mouth with a full glass of water. Follow the directions on the prescription label. Take your medicine at regular intervals. Do not take it more often than directed. Do not skip doses or stop your medicine early. Talk to your tip printer regarding the use of this medicine in children. Special care may be needed. This medicine has been used in children as young as 2 months of age. What side effects may I notice from receiving this medicine? Side effects that you should report to your doctor or health body care manager as soon as possible: allergic reactions like skin rash or hives, swelling of the face, lips, or tongue breathing problems fever or chills, sore throat irregular heartbeat, chest pain joint or muscle pain pain or difficulty passing urine red pinpoint spots on skin redness, blistering, peeling or loosening of the skin, including inside the mouth unusual bleeding or bruising unusually weak or tired yellowing of the eyes or skin Side effects that usually do not require medical attention (report to your doctor or health body care manager if they continue or are bothersome): diarrhea dizziness headache loss of appetite nausea, vomiting nervousness What may interact with this medicine? Do not take this medicine with any of the following medications: aminobenzoate potassium dofetilide metronidazole This medicine may also interact with the following medications: ARIANNA inhibitors like benazepril, enalapril, lisinopril, and ramipril cyclosporine digoxin diuretics indomethacin medicines for diabetes methenamine methotrexate phenytoin potassium supplements pyrimethamine sulfinpyrazone tricyclic antidepressants warfarin What if I miss a dose? If you miss a dose, take it as soon as you can. If it is almost time for your next dose, take only that dose. Do not take double or extra doses. Where should I keep my medicine? Keep out of the reach of children. Store at room temperature between 20 to 25 degrees C (68 to 77 degrees F). Protect from light. Throw away any unused medicine after the expiration date. What should I tell my health care provider before I take this medicine? They need to know if you have any of these conditions: anemia asthma being treated with anticonvulsants if you frequently drink alcohol containing drinks kidney disease liver disease low level of folic acid or [id number] dehydrogenase poor nutrition or malabsorption porphyria severe allergies thyroid disorder an unusual or allergic reaction to sulfamethoxazole, trimethoprim, sulfa drugs, other medicines, foods, dyes, or preservatives or trying to get breast-feeding What should I watch for while using this medicine? Tell your doctor or health body care manager if your symptoms do not improve. Drink several glasses of water a day to reduce the risk of kidney problems. Do not treat diarrhea with over the counter products. Contact your doctor if you have diarrhea that lasts more than 2 days or if it is severe and watery. This medicine can make you more sensitive to the sun. Keep out of the sun. If you cannot avoid being in the sun, wear protective clothing and use a sunscreen. Do not use sun lamps or tanning beds/booths. Mupirocin Topical ointment What is this medicine? MUPIROCIN (myoo PEER oh sin) is an antibiotic. It is used on the skin to treat skin infections. How should I use this medicine? This medicine is for external use only. Follow the directions on the prescription label. Wash your hands before and after use. Before applying, wash the affected area with mild soap and water and pat dry. Apply a small amount to the affected area and rub gently. You can cover the area with a gauze dressing. Do not get this medicine in your eyes. If you do, rinse out with plenty of cool tap water. Do not use your medicine more often than directed. Finish the full course of medicine prescribed by your doctor or health body care manager even if you think your condition is better. Do not use over large areas of burnt skin. Talk to your tip printer regarding the use of this medicine in children. Special care may be needed. What side effects may I notice from receiving this medicine? Side effects that you should report to your doctor or health body care manager as soon as possible: skin rash, redness, continued swelling, burning, itching, stinging, or pain Side effects that usually do not require medical attention (report to your doctor or health body care manager if they continue or are bothersome): dry skin, itching What may interact with this medicine? Interactions are not expected. Do not use any other skin products on the affected area without telling your doctor or health body care manager. What if I miss a dose? If you miss a dose, take it as soon as you can. If it is almost time for your next dose, take only that dose. Do not take double or extra doses. Where should I keep my medicine? Keep out of the reach of children. Store at room temperature between 20 and 25 degrees C (68 and 77 degrees F). Throw away any unused medicine after the expiration date. What should I tell my health care provider before I take this medicine? They need to know if you have any of these conditions: an unusual or allergic reaction to mupirocin, polyethylene glycol (PEG), or other topical antibiotic medicine or trying to get breast-feeding What should I watch for while using this medicine? Tell your doctor or health body care manager if your skin condition does not begin to improve within 3 to 5 days. You have been given the following additional information: Impetigo (Child) Cellulitis Drug Abuse Sulfamethoxazole, Trimethoprim Oral tablet Mupirocin Topical ointment (Electronically signed by Rola Melvin A.R.N.P. 01/31/2017 21:15)
--- NOTE | 2017-01-31 22:44 | ED MED RECONCILIATION SUMMARY ---
Patient: KATY SNOW Medication Reconciliation Report [facility] VisitID: [id number] [address] [place] [address] 32y, F Registration Date/Time: 01/31/2017 Weight: 74.8 kg Height/Length: 69 in. BMI: 24.4 ALLERGIES: None The patient's Home Medications are listed below: NONE. The source(s) of the original Home Medication information: Not obtained. The following Medications were given to the patient in the Emergency Department: None. The following Medications were prescribed to the patient: Bactrim DS 800 mg / 160 mg: take 1 tablet orally every day for 10 days. No refill. -- Rola Melvin A.R.N.P. Bactroban 2% ointment: apply small amount to affected area three times daily for 5 days. Dispense twenty-two (22) grams. No refills. Substitution is permissible. -- Rola Melvin A.RSabrinaN.P.
--- NOTE | 2017-01-31 22:44 | ED MED RECONCILIATION SUMMARY ---
Patient: KATY SNOW Medication Reconciliation Report [facility] VisitID: [id number] [address] [place] [address] 32y, F Registration Date/Time: 01/31/2017 Weight: 74.8 kg Height/Length: 69 in. BMI: 24.4 ALLERGIES: None The patient's Home Medications are listed below: NONE. The source(s) of the original Home Medication information: Not obtained. The following Medications were given to the patient in the Emergency Department: None. The following Medications were prescribed to the patient: Bactrim DS 800 mg / 160 mg: take 1 tablet orally every day for 10 days. No refill. -- Rola Melvin A.R.N.P. Bactroban 2% ointment: apply small amount to affected area three times daily for 5 days. Dispense twenty-two (22) grams. No refills. Substitution is permissible. -- Rola Melvin A.RSabrinaN.P.
--- NOTE | 2017-01-31 22:44 | ED MAR SUMMARY ---
..... Medication Administration Record [facility] [address] [place], [place] [id number] Patient: KATY SNOW Tyree Visit ID: [id number] 32y, F Weight: 74.8 kg Height/Length: 69 in BMI: 24.4 ALLERGIES: None
--- NOTE | 2017-01-31 22:44 | ED MAR SUMMARY ---
..... Medication Administration Record [facility] [address] [place], [place] [id number] Patient: KATY SNOW Tyree Visit ID: [id number] 32y, F Weight: 74.8 kg Height/Length: 69 in BMI: 24.4 ALLERGIES: None
== END 2017-01-31 20:50 | disposition home or self-care (01) ==
LOC: ED SRH 18:25
DX: L01.03 Bullous impetigo (principal); F11.188 Opioid abuse with other opioid-induced disorder; F15.180 Other stimulant abuse with stimulant-induced anxiety disorder; F11.129 Opioid abuse with intoxication, unspecified; F15.129 Other stimulant abuse with intoxication, unspecified; E07.9 Disorder of thyroid, unspecified; Z72.0 Tobacco use
CPT/HCPCS: 90004; 90074; 90100; 92760; 92761; 92762; 92763; 92764; 92765; 92766; 92767; 93070; 95059